=== PATIENT | male | born 1965 | race Caucasian/White ===

== ENCOUNTER → 2018-12-01 09:16 | Outpatient (CLI) | payer BC ==
--- NOTE | ~2018-12-01 | ST ---
PATIENT:MARTELL FELDER MEDICAL RECORD: [id number] SEX: M LOCATION:[facility] ORDER #: ADMISSION DATE: 12/01/18 AGE OF PATIENT: 53 REFERRING PHYSICIAN: INTERPRETING PHYSICIAN: CAMERON LOYA MD DATE OF SERVICE: 12/01/2018 PROCEDURE: Nuclear Stress Test. INDICATION: Angina, abnormal ECG, hypertension, shortness of breath. The patient was exercised on standard Wiley protocol for 10 minutes achieving greater than 85% max target heart rate response with 33 mCi of sestamibi injected at peak stress. Rest images were done previously with 10 mCi. FINDINGS: Gated SPECT reveals a preserved ejection fraction of 52% with decreased thickening and brightening throughout the inferior segments. SPECT imaging: Cardiolite was used as myocardial perfusion agent. There is a definite fixed perfusion defect that is extensive inferiorly. This includes the basal, mid, apical, inferior segments. There is, however, reversibility in the lateral segments. This includes the basal, mid, apical, lateral segments. OVERALL IMPRESSION: This is an abnormal nuclear stress test. Fixed perfusion defect inferiorly reversible ischemia laterally, this presents hemodynamically significant coronary artery disease and possibly multivessel disease. We will proceed with coronary angiography as followup study. TRANSINT:[id number] Voice Confirmation ID: [id number] DOCUMENT ID: [id number] CAMERON LOYA MD CC: [id number] DICTATION DATE: 12/02/18 1241 ETHYLENE COMPRESSOR OPERATOR: 12/03/18 0049 DEP CLI 12/01/18 [facility] [address] [place] [address]
== END | disposition home or self-care (01) ==
LOC: D.HCCARDIO 09:16
PROVIDERS: ATTEND Internal Medicine Interventional Cardiology
DX: Z03.89 Encounter for observation for other suspected diseases and conditions ruled out (principal)

== ENCOUNTER 2018-12-12 08:32 | Outpatient (CLI) | payer BC ==
[~2018-12-12] VITALS: Ht 167.6 cm; Wt 55.5 kg
--- NOTE | ~2018-12-12 | HP ---
PATIENT: MARTELL FELDER MEDICAL RECORD: [id number] ACCOUNT: [id number] LOCATION:[facility] : 67 ADMISSION DATE: 12/12/18 PCP: JESSIE WRIGHT MD HISTORY AND PHYSICAL EXAMINATION DIAGNOSES: 1. Angina. 2. Abnormal nuclear stress test. 3. Hypertension. 4. GERD. 5. Atrial fibrillation. HISTORY OF PRESENT ILLNESS: This is a gentleman with no history of ischemic heart disease, a history of atrial fibrillation. He began having anginal chest discomfort. Nuclear stress test reveals fixed perfusion defect inferiorly with lateral ischemia, suggestive of possible multivessel disease. Now, we are proceeding with coronary angiography. PHYSICAL EXAMINATION: GENERAL APPEARANCE: Well-nourished, well-developed, appears stated age. Level of distress, comfortable. PSYCHIATRIC: Mental status, alert, normal affect. Orientation, oriented to time, place and person. EYES: Lids and conjunctiva, noninjected. No discharge, no pallor. ENT: Lips, teeth, gums, normal dentition. Oropharynx, no cyanosis, no pallor. NECK: Carotid arteries, bilateral normal upstroke, no bruits, no thrills. JUGULAR VEINS: No jugular venous pressure or distention. CERVICAL LYMPH NODES: Nontender, nonenlarged. THYROID: Not enlarged. Nontender. No nodules. LUNGS: Respiratory effort, unlabored. CHEST: Normal curvature. No thoracic deformity. No chest wall tenderness. Percussion, resonant. Auscultation, clear. No wheezes, no rales, no rhonchi. CARDIOVASCULAR: Precordial exam, nondisplaced. No heaves or pericardial thrills. Rate and rhythm, regular. Heart sounds, normal S1, normal S2. No S3, no gallop, no rub. Systolic murmur, not heard. Diastolic murmur, not heard. EXTREMITIES: No cyanosis, no edema. Peripheral pulses, full and equal in all extremities, except as noted. No bruits appreciated. ABDOMEN: Soft, nondistended. Normal aorta. No bruit. Nontender. No masses. Liver, nontender, no hepatomegaly. Spleen, nontender, no splenomegaly. MUSCULOSKELETAL: No joint tenderness. No joint swelling. No erythema. NEUROLOGICAL: Normal gait, normal strength, normal tone. SKIN: Warm and dry. OVERALL IMPRESSION: Anginal symptomatology with markedly abnormal nuclear stress test. We will proceed with coronary angiography. Further care depends upon the findings of the angiography. TRANSINT:[id number] Voice Confirmation ID: [id number] DOCUMENT ID: [id number] HISTORY AND PHYSICAL [id number] MARTELL FELDER JEFFREY MD CC: [id number] DICTATION DATE: 12/12/18 1036 MICRO LAB ANALYST: 12/12/18 1156 REG [facility] [address] [place] [id number]
--- NOTE | ~2018-12-12 | OP ---
PATIENT NAME: MARTELL FELDER MEDICAL RECORD: [id number] :67 LOCATION:[facility] ADMISSION DATE: SURGEON: CAMERON LOYA MD DATE OF OPERATION: 12/12/2018 PROCEDURES: 1. PTCA stent RCA. 2. Left heart catheterization. 3. Selective coronary angiography. 4. Left ventriculogram. INDICATION: Angina and coronary artery disease. PROCEDURE IN DETAIL: After informed consent was obtained and after a detailed description of the risks, benefits as well as alternative therapies, the patient elected to proceed with angiogram and angioplasty. The right femoral area was prepped and draped in normal sterile fashion. Right femoral artery was cannulated via modified Seldinger technique with placement of 6-Chilean sheath. All catheters exchanged through this sheath. FINDINGS: The left ventriculogram performed in standard 30-degree BARTHOLOMEW view, reveals good cardiac wall motion throughout all segments. Overall ejection fraction estimated 60%. SELECTIVE CORONARY ANGIOGRAPHY: 1. Left main is with no significant angiographic disease. 2. Left anterior descending has mild irregularities, no flow-limiting stenosis. 3. The left circumflex is a very large, dominant vessel with 90% stenosis in the mid vessel. 4. Right coronary artery is small, nondominant with no significant disease. PTCA STENT OF LEFT CIRCUMFLEX: The stent used was a 4.0 x 18 mm Integrity. Result was 0% residual stenosis. OVERALL IMPRESSION: Successful percutaneous transluminal angioplasty stent of the left circumflex going from 90% initial stenosis to 0% residual. TRANSINT:[id number] Voice Confirmation ID: [id number] DOCUMENT ID: [id number] CAMERON LOYA MD CC: [id number] DICTATION DATE: 12/12/18 1110 INFORMATION SYSTEMS SECURITY SPECIALIST: 12/12/18 1158 REG [facility] [address] [place] [id number]
--- NOTE | ~2018-12-12 | HEMODYNAMI ---
PATIENT:MARTELL FELDER MEDICAL RECORD: [id number] : 67 LOCATION:[facility] ADMISSION DATE: 12/12/18 Generatedon:12/12/201811:13 Patient name: MARTELL FELDER Patient #: [id number] SSN: : 1965 Date of study: 12/12/2018 Page: Of Hemodynamic Procedure Report Patient Data Patient Demographics Procedure consent was obtained First Name: MARTELL Gender: Male Last Name: EMERITA : 1965 Patient #: [id number] Age: 53 year(s) Race: Additional ID: [id number] Contact details Address: [place] [address] State: [place] City: [place] Zip code: [address] Admission Admission Data Admission Date: 12/12/2018 Admission Time: 8:32 Admit Source: Other Insurance Payor: Private health insurance Height (in.): 65.75 BSA: 1.61 (m2) Height (cm.): 167 BMI: 19.72 (kg/m2) Weight (lbs.): 121.25 Weight (kg.): 55 Lab Results Lab Result Date: 12/12/2018 Lab Result Time: 0:00 Biochemistry Name Units Result Min Max BUN mg/dl 19 --(----)*- 7 18 Creatinine mg/dl 1.3 --(---*)-- 0.6 1.3 CBC Name Units Result Min Max Hemoglobin g/dl 15.8 --(--*-)-- 13.5 17.5 Procedure Procedure Types Cath Procedure Diagnostic Procedure LHC LHC w/Coronaries Sedation Charges Moderate Sedation up to 15 minutes PCI Procedure Coronary Stent Coronary Stent Initial Procedure Description Procedure Date Procedure Date: 12/12/2018 Procedure Start Time: 10:57 Procedure End Time: 11:08 Procedure Staff Name Function Anthony Blair MD Performing Physician Allison Cardenas RT Monitor River Don RT Scrub Juan Dawkins RN Nurse Procedure Data Cath Procedure Fluoroscopy Diagnostic fluoroscopy Total fluoroscopy Time: 2.4 time: 2.4 min min Diagnostic fluoroscopy Total fluoroscopy dose: 481 dose: 481 mGy mGy Contrast Material Contrast Material Type Amount (ml) Isovue 300 112 Entry Location Entry Primary Successful Side Size Upsize Upsize Entry Closure Flores ccessful Closure Location (Fr) 1 (Fr) 2 (Fr) Remarks Device Remarks Radial Right 6 Fr Mechanical artery Short Compression Estimated blood loss: 5 ml Diagnostic catheters Device Type Used For End Catheter Placement DIAGNOSTIC Moneta 110cm 5 Multi-vessel Fr catheter ([id number]) Angiography Procedure Complications No complications Procedure Medications Medication Administration Route Dosage 0.9% NaCl I.V. 100 ml/hr Oxygen etCO2 Nasal cannula 2 l/min Heparin Flush Bag added to field 2 bags (1000units/500ml NS) Lidocaine 2% added to field 20 Radial Cocktail added to field 1 syringe (Verapomil 2mg/Nitro 400mcg/Heparin 1500units) Versed I.V. 2 mg Fentanyl I.V. 100 mcg Radial Cocktail I.A. 1 syringe (Verapomil 2mg/Nitro 400mcg/Heparin 1500units) Heparin Bolus I.V. 4000 units Integrilin (Bolus I.V. 5 ml 2mg/ml) Integrilin (Bolus wasted 5 ml 2mg/ml) Plavix P.O. 600 mg Hemodynamics Rest BSA: 1.61 (m2) HGB: 15.8 (g/dl) O2 Consumption: Estimated: 191.48 (ml/min) O2 Co nsumption indexed: Estimated:118.93 (ml/min/m) Heart Rate: 69 (bpm) Pressure Samples Time Site Value (mmHg) Purpose Heart Use Rate(bpm) 10:58 LV 84/32,27 Snapshot 70 Snapshots Pre Cath Intra NCS Post Cath Vital Signs Time Heart Resp SPO2 etCO2 NIBP (mmHg) Rhythm Pain Sedation Rate (ipm) (%) (mmHg) Status Level (bpm) 10:38:49 69 19 98 0 122/84(99) Paced 0 (11) 10(A) , No pain 10:42:51 69 11 97 37.1 126/84(104) Paced 0 (11) 10(A) , No pain 10:46:56 69 16 98 41.6 118/76(91) Paced 0 (11) 10(A) , No pain 10:50:58 69 16 98 38.6 113/79(95) Paced 0 (11) 10(A) , No pain 10:55:00 69 16 98 41 124/78(100) Paced 0 (11) 10(A) , No pain 10:59:14 69 15 97 40.9 96/51(69) Paced 0 (11) 9(A) , No pain 11:03:14 69 20 95 53.8 97/68(84) Paced 0 (11) 9(A) , No pain 11:08:08 69 16 97 0 103/66(83) Paced 0 (11) 10(A) , No pain Medications Time Medication Route Dose Verified Delivered Reason Not es Effectiveness by by 10:42:54 0.9% NaCl I.V. 100 Juan Juan Per physician ml/hr Mariza Dawkins RN RN 10:43:04 Oxygen etCO2 2 l/min Juan Juan for low 02 sats Nasal Mariza Dawkins cannula RN RN 10:43:17 Heparin Flush added 2 bags Juan Juan used for Bag to Mariza Dawkins procedure (1000units/500ml field KRUSE RN NS) 10:43:30 Lidocaine 2% added 20ml Juan Juan for local to vial Mariza Dawkins anesthetic field KRUSE RN 10:43:45 Radial Cocktail added 1 Juan Juan used for (Verapomil to syringe Mariza Dawkins procedure 2mg/Nitro field KRUSE RN 400mcg/Heparin 1500units) 10:53:42 Versed I.V. 2 mg Juan Juan for sedation Mariza Dawkins RN RN 10:53:52 Fentanyl I.V. 100 mcg Juan Juan for sedation Mariza Dawkins RN RN 10:58:54 Radial Cocktail I.A. 1 Juan Anthony for (Verapomil syringe Mariza Blair MD vasodilation 2mg/Nitro RN 400mcg/Heparin 1500units) 11:05:21 Heparin Bolus I.V. 4000 Juan Juan for units Mariza Dawkins anticoagulation RN RN 11:05:39 Integrilin I.V. 5 ml Juan Juan for (Bolus 2mg/ml) Mariza Dawkins antiplatelet RN RN therapy 11:05:45 Integrilin wasted 5 ml Juan Juan to sharp's (Bolus 2mg/ml) Mariza Dawkins RN RN 11:10:13 Plavix P.O. 600 mg Juan Juan for Lorigan Lorigan antiplatelet RN RN therapy Procedure Log Time Note 10:05:58 Informed consent obtained and on chart 10:06:25 Diagnostic Cath Status : Elective 10:06:43 River Don RT(R) sent for patient. Start room use. 10:06:44 Time tracking: Regular hours (M-F 7:00 - 5:00) 10:06:48 Plan of Care:Hemodynamics will remain stable., Cardiac rhythm will remain stable., Comfort level will be maintained., Respiratory function will remain adequate., Patient/ family verbilizes understanding of procedure., Procedure tolerated without complication., Recovers from procedure without complications.. 10:33:02 Patient received from Pre/Post Procedure Room to CCL 2 Alert and oriented. Tansferred to table in Supine position. 10:33:04 Warm blankets applied, and harpreet hugger turned on for patient comfort. 10:33:04 Correct patient and procedure confirmed by team. 10:33:05 ECG and BP/O2 sat monitors applied to patient. 10:33:06 Vital chart was started 10:40:37 Baseline sample Acquired. 10:40:45 Rhythm: paced 10:40:47 Full Disclosure recording started 10:42:54 0.9% NaCl 100 ml/hr I.V. was administered by Juan Dawkins RN; Per physician; 10:43:04 Oxygen 2 l/min etCO2 Nasal cannula was administered by Juan Dawkins RN; for low 02 sats; 10:43:17 Heparin Flush Bag (1000units/500ml NS) 2 bags added to field was administered by Juan Dawkins RN; used for procedure; 10:43:30 Lidocaine 2% 20ml vial added to field was administered by Juan Dawkins RN; for local anesthetic; 10:43:45 Radial Cocktail (Verapomil 2mg/Nitro 400mcg/Heparin 1500units) 1 syringe added to field was administered by Juan Dawkins RN; used for procedure; 10:46:23 H&P Date Dictated: 12/12/2018 Within 30 days and on chart., H&P Addendum completed by physician on day of procedure. (MUST COMPLETE FOR ALL OUTPATIENTS). 10:46:25 Pre-procedure instructions explained to patient. 10:46:25 Pre-op teaching completed and patient verbalized understanding. 10:46:26 Family in waiting room. 10:46:27 Patient NPO since Midnight. 10:46:29 Is the patient allergic to Iodine/contrast media? No. 10:46:30 Was the patient premedicated? No 10:46:32 Is patient on blood thinner?No 10:46:33 Patient diabetic? No. 10:46:36 Previous problem with sedation/anesthesia? No ? 10:46:38 Snore? No 10:46:39 Sleep apnea? No 10:46:40 Deviated septum? No 10:46:40 Opens mouth fully? Yes 10:46:41 Sticks out tongue? Yes 10:46:43 Airway obstruction? No ? 10:46:45 Dentures? No ? 10:46:48 Pre procedure: right dorsailis pedis pulse 2+ Normal; easily identifiable; not easily obliterated 10:46:51 Pre procedure: left dorsailis pedis pulse 2+ Normal; easily identifiable; not easily obliterated 10:46:54 Patient pain scale 0/10 ?. 10:47:00 IV patent on arrival in left forearm with 0.9% NaCl at [facility]. 10:47:02 Lab results completed and on chart. 10:47:07 Right Radial & Right Groin area was prepped with chlora-prep and draped in sterile fashion 10:47:08 Alarms reviewed by R. N. 10:47:08 Sharps counted by scrub and verified by R.N. 10:52:15 Physician arrived 10:52:16 --------ALL STOP TIME OUT------ 10:52:16 Final Timeout: patient, procedure, and site verified with staff and physician. All members of the team are in agreement. 10:52:18 Right Radial & Right Groin site verified by team. 10:52:35 Lab Result : Creatinine 1.3 mg/dl 10:52:35 Lab Result : BUN 19 mg/dl 10:52:35 Lab Result : Hemoglobin 15.8 g/dl 10:52:51 Admit Source: Other 10:52:56 Patient Height : 65.75 inches 10:52:59 Patient Weight : 121.25 lbs 10:53:04 Insurance Payor : Private health insurance 10:53:40 Maximum allowable Isovue 300 dose 51ml. Physician notified. (300ml for normal creatinines. For patients with creatinine of 1.7 or higher multiply weight(kg) x 5 divided by creatinine.) 10:53:42 Versed 2 mg I.V. was administered by Juan Dawkins RN; for sedation; 10:53:44 Fire Safety Assessment: A--An alcohol-based skin anteseptic being used preoperatively., C--Open oxygen or nitrous oxide is being used., D--An ESU, laser, or fiber-optic light is being used. 10:53:47 Physical assessment completed. ASA score P 2 - A patient with mild systemic disease as per Anthony Blair MD. 10:53:50 Sedation plan: IV Moderate Sedation Medication:Versed, Fentanyl 10:53:52 Fentanyl 100 mcg I.V. was administered by Juan Dawkins RN; for sedation; 10:56:32 Procedure started. 10:56:38 Use device set Radial Dx or PCI 10:56:40 ACIST Syringe (66072) opened to sterile field. 10:56:40 Medline Cath Pack ([id number]) opened to sterile field. 10:56:40 Bag Decanter (2002S) opened to sterile field. 10:56:41 DIAGNOSTIC WIRE .035 260cm J wire (165116) opened to sterile field. 10:56:41 ACIST Hand Control (66922) opened to sterile field. 10:56:41 ACIST Manifold (31331) opened to sterile field. 10:56:42 Tegaderm 4 x 4 (1626W) opened to sterile field. 10:56:42 MBrace Wrist Support ([id number]) opened to sterile field. 10:56:44 SHEATH 6FR Slender (35-4882) opened to sterile field. 10:57:09 Local anesthetic to right radial artery with Lidocaine 2% by Anthony Blair MD.INITIAL ACCESS ONLY 10:57:24 A 6 Fr Short sheath was inserted into the Right Radial artery 10:57:36 A DIAGNOSTIC Moneta 110cm 5 Fr catheter (879732) was advanced over the wire and used for Multi-vessel Angiography. 10:58:44 LV hemodynamics recorded. 10:58:44 LV gram done using BARTHOLOMEW 10:58:47 Injector settings: Ml/sec: 5\, Volume: 15, 10:58:54 Radial Cocktail (Verapomil 2mg/Nitro 400mcg/Heparin 1500units) 1 syringe I.A. was administered by Anthony Blair MD; for vasodilation; :59:08 EF : 40 % 10:59:23 LCA angiography performed. 10:59:26 Injector settings: Ml/sec: 3, Volume: 6, 11:00:48 RCA angiography performed. 11:00:55 Injector settings: Ml/sec: 3, Volume: 6, 11:00:58 Catheter removed. 11:01:20 Proceeding to intervention. 11:02:34 GUIDE 6FR XBLAD 3.5 catheter ([id number]) opened to sterile field. 11:02:35 CHOICE PT Extra Support 182cm wire ([id number]) opened to sterile field. 11:02:36 INFLATOR Merit BasixCompak (NE3312) opened to sterile field. 11:02:43 6 Fr xblad 3.5 guide catheter was inserted over the wire 11:02:49 choice pt wire advanced. 11:02:51 Wire advanced across lesion. 11:05:21 Heparin Bolus 4000 units I.V. was administered by Juan Dawkins RN; for anticoagulation; 11:05:36 Place stent Inflation Number: 1 A INTEGRITY 4.0 x 18 stent ([id number]) was prepped and advanced across the Mid CX. The stent was deployed at 15 GIO for 0:10 (min:sec). 11:05:39 Integrilin (Bolus 2mg/ml) 5 ml I.V. was administered by Juan Dawkins RN; for antiplatelet therapy; 11:05:45 Integrilin (Bolus 2mg/ml) 5 ml wasted was administered by Juan Dawkins RN; to sharp's; 11:06:26 Stent catheter was removed intact over wire. 11:06:28 Wire removed. 11:06:29 Guide catheter removed. 11:07:01 TR BAND Standard ([id number]) opened to sterile field. 11:07:12 Sheath removed intact; hemostasis achieved with Mechanical Compression to the Right Radial artery. 11:07:14 Procedure ended.(Physican Out) 11:07:29 Fluoroscopy time 02.40 minutes. 11:07:32 Fluoroscopy dose: 481 mGy 11:07:32 Flurop Dose total: 481 11:07:45 Contrast amount:Isovue 300 112ml. 11:07:46 Sharps counted by scrub and verified by R.N. 11:07:50 TR band inflated with 10cc of air. 11:07:52 Insertion/operative site no bleeding no hematoma. 11:07:58 Post right radial artery:stable 11:08:01 Post Procedure Pulses reassessed and unchanged 11:08:04 Post procedure rhythm: unchanged. 11:08:06 Estimated blood loss: 5 ml 11:08:07 Post procedure instruction explained to patient.Patient verbalizes understanding. 11:08:08 Patient needs reinforcement of post procedure teaching. 11:08:28 Procedure type changed to Cath procedure, Diagnostic procedure, LHC, LHC w/Coronaries, Sedation Charges, Moderate Sedation up to 15 minutes, PCI procedure, Coronary Stent, Coronary Stent Initial 11:08:30 Procedure and supply charges have been captured, reviewed, submitted and are correct. 11:08:36 Procedure Complication : No complications 11:08:38 Vital chart was stopped 11:08:39 See physician's report for complete and final results. 11:08:44 Report given to Pre/Post Procedure Room. 11:08:47 Patient transfered to Pre/Post Procedure Room with Stretcher. 11:08:51 Procedure ended. 11:08:51 Full Disclosure recording stopped 11:09:00 ACC-PCI Only Patient was given prescriptions, or instructed by Anthony Blair MD to start/continue the following medications upon discharge: Plavix 11:09:01 End room use (Document Last) 11:10:13 Plavix 600 mg P.O. was administered by Juan Dawkins RN; for antiplatelet therapy; Intervention Summary Intervention Notes Time ActionType Lesion and Equipment Action# Pressure Duration Attributes Used 11:05:36 Place stent Mid CX INTEGRITY 1 15 00:10 4.0 x 18 stent ([id number]) Device Usage Item Name Manufacture Quantity Catalog Number Hospital Part Current Mini [facility] Lot# / Charge Number Stock Stock Serial# Code ACIST Acist 1 87427 430414 461548 725175 20 Syringe eVeritas, Inc. (57241) Systems Inc Medline Cath Medline 1 [id number] 229209 13228 084986 5 Pack ([id number]) Bag Decanter Microtek 1 646450 35359 749447 5 () Medical Inc. DIAGNOSTIC [facility] [place] 1 622812 563118 342901 973003 30 WIRE .035 260cm J wire (987517) ACIST Hand Acist 1 71160 416171 501384 364937 5 Control Medical (29180) Systems Inc ACIST Acist 1 09094 137901 715872 916143 5 Manifold Medical (10849) Systems Inc Tegaderm 4 x 3M 1 1626W 979235 408893 058200 5 4 (1626W) MBrace Wrist Advanced 1 140-0250-00 665989 03934 953117 5 Support Vascular ([id number]) Dynamics SHEATH 6FR Terumo 1 [id number] 344982 333572 050179 5 Slender (80-1060) DIAGNOSTIC Terumo 1 40-1393 375906 840146 072647 5 Moneta 110cm 5 Fr catheter (501521) GUIDE 6FR Cardinal 1 [id number] 846187 911042 544080 10 XBLAD 3.5 Health catheter ([id number]) CHOICE PT Mammoth 1 [id number] 542997 526353 386080 5 Extra Scientific Support 182cm wire ([id number]) INFLATOR Merit 1 AN0707 977949 149067 529915 15 Merit Medical BasixCompak (OZ6122) INTEGRITY Medtronic 1 [id number] 967552 820690 425780 5 [id number] 4.0 x 18 stent ([id number]) TR BAND Terumo 1 [id number] 713382 374789 092195 40 Standard ([id number]) Signature Audit [place] Stage Time Signature Unsigned Intra-Procedure 12/12/2018 Allison Cardenas 11:13:06 AM RT(R) Signatures Monitor : Allison Cardenas RT Signature : Date : Time : [facility] [address] [place] [address]
[2018-12-12] MEDS ORDERED: COUMADIN4 MG PO (08:49)
[2018-12-12] MEDS ORDERED: AMBIEN10 MG PO (08:50)
[2018-12-12] MEDS ORDERED: LISINOPRIL40 MG PO (08:51)
[2018-12-12] MEDS ORDERED: HYDROCODON-ACET15 ML (08:51)
[2018-12-12] MEDS ORDERED: TENORMIN50 MG PO (08:52)
[2018-12-12] MEDS ORDERED: BETAPACE 120 M120 MG (08:52)
[2018-12-12] MEDS ORDERED: BACLOFEN10 MG (08:53)
[2018-12-12] MEDS ORDERED: FLUTICASONE PRO16 GM (08:53)
[2018-12-12] MEDS ORDERED: NEXIUM20 MG (08:54)
[2018-12-12 09:01] VITALS: BP 155/101; Ht 167.6 cm; Wt 55.5 kg
[2018-12-12 09:04] LABS: BASOPHILS 0.2 % (0-2); EOSINOPHILS 4.5 % (0-7); HEMATOCRIT 46.5 % (42.0-54.0); HEMOGLOBIN 15.8 g/dL (13.5-17.5); IMMATURE GRANULOCYTES 0.2 % (0-5); LYMPHOCYTES 30.7 % (15-50); MCH 28.4 pg (26.0-34.0); MCV 83.5 fL (80.0-100.0); MEAN PLATELET VOLUME 10.2 fL (7.4-10.4); MONOCYTES 9.8 % (2-11); NEUTROPHILS 54.6 % (40-80); PLATELET COUNT 195 10x3/uL (130-400); RBC 5.57 10x6/uL (4.20-6.10); RDW 13.6 % (11.5-14.5); WBC 5.8 10x3/uL (4.8-10.8)
[2018-12-12 09:18] LABS: ANION GAP 9.5 mmol/L (8-16); CALCIUM 8.9 mg/dL (8.5-10.1); CARBON DIOXIDE 28.8 mmol/L (21.0-32.0); CREATININE - SERUM 1.3 mg/dL (0.6-1.3)
[2018-12-12 09:20] LABS: POTASSIUM - SERUM 4.3 mmol/L (3.5-5.1)
[2018-12-12 09:27] LABS: INR 1.06 (0.85-1.17); PROTIME 13.3 SECONDS (11.6-15.0)
--- NOTE | 2018-12-12 11:35 | NUR ---
PATIENT AWAKE, TOLERATING PO FLUIDS, NO N/V. RIGHT TR BAND IN PLACE, NO S/S OF BLEEDING OR HEMATOMA. NO C/O PAIN, NUMBNESS, OR TINGLING.
--- NOTE | 2018-12-12 12:05 | NUR ---
PATIENT RESTING, FAMILY AT BEDSIDE. VSS ON 2L NC. RIGHT TR BAND IN PLACE, NO S/S OF BLEEDING OR HEMATOMA.
[2018-12-12] MEDS ORDERED: PLAVIX75 MG PO (12:12)
--- NOTE | 2018-12-12 12:35 | NUR ---
PATIENT INTERMITTENTLY RESTING, FAMILY PRESENT AT BEDSIDE. VSS ON 2L NC. RIGHT TR BAND IN PLACE, NO S/S OF BLEEDING OR HEMATOMA. NO C/O PAIN, NUMBNESS, OR TINGLING.
--- NOTE | 2018-12-12 13:05 | NUR ---
PATIENT INTERMITTENTLY RESTING, VSS ON 1L NC. RIGHT TR BAND IN PLACE, NO S/S OF BLEEDING OR HEMATOMA. NO C/O PAIN, NUMBNESS, OR TINGLING. NO N/V.
--- NOTE | 2018-12-12 13:20 | NUR ---
PATIENT RESTING, VSS ON ROOM AIR. RIGHT GROIN DRESSING IS CDI, NO S/S OF BLEEDING OR HEMATOMA. NO C/O PAIN, NUMBNESS, OR TINGLING.
--- NOTE | 2018-12-12 13:35 | NUR ---
PATIENT AWAKE, VSS ON 1L NC. RIGHT TR BAND IN PLACE, NO S/S OF BLEEDING OR HEMATOMA. NO C/O PAIN,NUMBNESS, OR TINGLING.
--- NOTE | 2018-12-12 14:05 | NUR ---
PATIENT AWAKE, VSS ON ROOM AIR. RIGHT TR BAND IN PLACE, NO S/S OF BLEEDING OR HEMATOMA. TURKEY SANDWICH AND JUICE GIVEN PER REQUEST OF PATIENT, NO N/V. PATIENT C/O HEADACHE.
--- NOTE | 2018-12-12 14:15 | NUR ---
BEGIN AIR REMOVAL PROTOCOL FOR RIGHT TR BAND, NO S/S OF BLEEDING OR HEMATOMA.
--- NOTE | 2018-12-12 14:35 | NUR ---
PATIENT AWAKE, FOLLOWING AIR REMOVAL PROTOCOL, NO S/S OF BLEEDING OR HEMATOMA. VSS ON ROOM AIR. PATIENT STATES THAT HEADACHE HAS IMPROVED WITH ACETAMINOPHEN.
--- NOTE | 2018-12-12 15:05 | NUR ---
AIR REMOVED FROM TR BAND, PATIENT DRESSED. IV REMOVED. EDUCATION GIVEN TO PATIENT AND SPOUSE REGARDING DISCHARGE INSTRUCTIONS AND MEDICATION COMPLIANCE REGARDING PLAVIX, PATIENT VOICES UNDERSTANDING. VSS ON ROOM AIR.
--- NOTE | 2018-12-12 15:15 | NUR ---
PATIENT DRESSED, READY TO LEAVE WHEN SMALL AMOUNT OF BLEEDING NOTED FROM RIGHT RADIAL DRESSING IS NOTED. DRESSING REMOVED, PRESSURE APPLIED FOR FIVE MINUTES, NO FURTHER S/S OF BLEEDING OR HEMATOMA. WILL MONITOR PATIENT.
--- NOTE | 2018-12-12 15:30 | NUR ---
RIGHT RADIAL DRESSING IS CDI, NO S/S OF BLEEDING OR HEMATOMA NOTED. PATIENT VOIDED WITHOUT DIFFICULTY. PATIENT TRANSPORTED TO CAR WITH SPOUSE DRIVING, ALL BELONGINGS SENT WITH PATIENT.
== END 2018-12-12 15:30 ==
LOC: D.CATH 08:32
PROVIDERS: ATTEND Internal Medicine Interventional Cardiology
DX: I25.119 Atherosclerotic heart disease of native coronary artery with unspecified angina pectoris (principal); Z01.812 Encounter for preprocedural laboratory examination; I10 Essential (primary) hypertension; K21.9 Gastro-esophageal reflux disease without esophagitis; I48.91 Unspecified atrial fibrillation